=== PATIENT | female | born 1965 | race Caucasian/White ===

== ENCOUNTER → 2025-05-15 | Emergency (ER) | payer MEDICAID ==
[~2025-05-15] VITALS: Ht 167.6 cm; Wt 78.5 kg
[~2025-05-15] MED LIST: ASPIRIN EC 81 MG TABLET.DR PO ONE
[2025-05-15 16:12] VITALS: BP 152/99; TEMP 98; O2SAT 98
[2025-05-15] MEDS: ASPIRIN 81 MG TAB.CHEW PO ONE (16:30)
[2025-05-15 16:50] LABS: PLATELET COUNT (AUTO) 190 K/uL (150-450); RED BLOOD CELL COUNT(AUTO) 4.41 MIL/uL (4.0-5.2); RED CELL DISTRIBUTION WIDTH 14.4 % (11.5-15.0); WHITE BLOOD COUNT (AUTO) 4.6 K/uL (4.3-11.0)
[2025-05-15 16:57] LABS: CALCIUM, SERUM 9.2 mg/dL (8.5-10.1); CREATININE 0.9 mg/dL (0.6-1.3); SODIUM SERUM 140 mmol/L (136-145); UREA NITROGEN, BLOOD 16 mg/dL (7-18)
== END ==
LOC: ER 15:59
DX: R07.89 Other chest pain (principal); R00.2 Palpitations; I11.9 Hypertensive heart disease without heart failure; E78.5 Hyperlipidemia, unspecified
CPT/HCPCS: 36415; 71045-TC; 80048-TC; 84484-TC; 85025-TC